=== PATIENT | female | born 1970 | race Caucasian/White ===

== ENCOUNTER → 2024-04-19 11:16 | Outpatient (REF) | payer BC, SELFPAY | LOC: WDC 11:16 | PROVIDERS: ATTENDING PHYSICIAN Nurse Practitioner Adult Health; FAMILY PHYSICIAN Physician Assistant Medical | DX: Z12.31 Encounter for screening mammogram for malignant neoplasm of breast (principal) | CPT/HCPCS: 77063; 77067 ==

== ENCOUNTER 2024-06-30 14:58 | Emergency (ER) | payer BC, SELFPAY ==
[2024-06-30 15:12] VITALS: BP 128/90
[2024-06-30 16:59] VITALS: BMI 18.3
[2024-06-30 17:00] VITALS: BP 100/65
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
== END 2024-06-30 20:10 | disposition home or self-care (01) ==
LOC: EMR 14:58
PROVIDERS: EMERGENCY PHYSICIAN Emergency Medicine; FAMILY PHYSICIAN Physician Assistant Medical
DX: M25.512 Pain in left shoulder (principal); M25.511 Pain in right shoulder; M25.521 Pain in right elbow; M54.50 Low back pain, unspecified; Y04.8XXA Assault by other bodily force, initial encounter
CPT/HCPCS: 99283; 72050; 72110; 73030; 73080

== ENCOUNTER → 2025-04-20 12:43 | Outpatient (REF) | payer BC, SELFPAY | LOC: WDC 12:43 | PROVIDERS: ATTENDING PHYSICIAN Nurse Practitioner Adult Health; FAMILY PHYSICIAN Physician Assistant Medical | DX: Z12.31 Encounter for screening mammogram for malignant neoplasm of breast (principal) | CPT/HCPCS: 77063; 77067 ==